=== PATIENT | male | born 1935 | race Caucasian/White ===

== ENCOUNTER 2016-05-25 15:26 | Inpatient (IN) | payer OTHER, MEDICARE ==
[~2016-05-25] VITALS: Ht 175.3 cm; Wt 52.1 kg
[2016-05-25 16:21] VITALS: BP 140/66; PULSE 60; RESP 18; TEMP 97.6
[2016-05-25 16:26] VITALS: BP 140/66; PULSE 61; RESP 18; O2SAT 93
[2016-05-25] MEDS ORDERED: SODIUM CHLOR 0.9% 1000 ML INJ 1,000 ML IV SCH (16:35)
[2016-05-25 16:53] VITALS: O2SAT 95
--- NOTE | 2016-05-25 16:56 | PD ---
HPI Chief Complaint: General Weakness Time Seen by Provider: 16:51 Travel History International Travel<30 days: No Contact w/Intl Traveler<30days: No Traveled to known affect area: No History of Present Illness HPI 80-year-old male that presents to the ED for evaluation of generalized weakness. Patient states that for the past 3 days his been having nausea, vomiting, loss of appetite as well as diarrhea. Per patient he doesn't really have abdominal pain but cramping when he has the diarrhea. Per patient his been losing some weight about 10 pounds for the past 3 days. Per patient he takes no medications. Per patient he has no medical issues. Per patient he also doesn't see doctors frequently. Per patient he does drink and smoke. He denies having a colonoscopy recently. He states that his stools are tarry and other liquidy. She states that for the most part he has no discomfort at this time. Per patient and his main symptom is the weakness and feeling fatigued. He denies any blood in the stool or any blood on the vomiting. He states that the only thing has been taking is Tylenol for pain. Per patient he also developed some right shoulder pain with no injury for the past 3 days. Per patient the pain in this area is 4 out of 10. Denies any chest pain or shortness of breath. No cough or runny nose. States having some chills and sweats but no fever. [facility] Social History Alcohol Use: No Tobacco Use: Yes Substance Use: No Allergies-Medications (Allergen,Severity, Reaction): Coded Allergies: No Known Allergies (Unverified , 05/25/16) Reported Meds & Prescriptions Reported Meds & Active Scripts Active No Active Prescriptions or Reported Medications Review of Systems General / Constitutional: No: Fever, Chills, Weight Gain, Weight Loss, Other Eyes: No: Diploplia, Blurred Vision, Photophobia, Drainage, Redness, Foreign Body Sensation, Pain, Tearing, Blind Spots, Visual changes, Blindness, Other HENT: No: Headaches, Vertigo, Lightheadedness, Sore Throat, Rhinitis, Rhinorrhea, Congestion, Nosebleed, Neck Stiffness, Neck Pain, Masses, Gingival Bleeding, Dental Difficulties, Ear Discharge, Earache, Other Cardiovascular: No: Chest Pain or Discomfort, Palpitations, Irregular Rhythm, Tachycardia, Diaphoresis, Syncope, Dyspnea on exertion, Varicosities, Edema, Cyanosis, Varicosities, Phlebitis, Claudication, Other Respiratory: No: Cough, Shortness of Breath, Wheezing, Sneezing, Orthopnea, Hemoptysis, Stridor, Night Sweats, Pleuritic Pain, Other Gastrointestinal: Positive: Nausea, Vomiting, Diarrhea, Abdominal Pain, No: Hematemesis, Hematochezia, Constipation, Changes in Bowel Habits, Indigestion, Dysphagia, Loss of Appetite, Other Genitourinary: No: Urgency, Frequency, Dysuria, Nocturia, Hematuria, Decreased Urinary Output, Oliguria, Hesitancy, Dribbling, Incontinence, Pelvic Pain, Flank Pain, Dyspareunia, Discharge, Dysmenorrhea, Menorrhagia, Metorrhagia, Vaginal Bleeding, Other Musculoskeletal: Positive: Weakness, No: Myalgias, Arthralgias, Limited ROM, Cramping, Edema, Pain, Atrophy, Other Skin: No Rash, No Itching, No Dryness, No Lumps, No Hives, No Change in Pigmentation, No Change in nails, No Alopecia, No Lesions, No Breast Lumps, No Breast Tenderness, No Breast Swelling, No Other Neurologic: No: Weakness, Dizziness, Syncope, Focal Abnormalities, Coordination Problem, Tremor, Ataxia, Headache, Change in Mentation, Slurred Speech, Paresthesia, Incontinence, Seizures, Sensory Disturbance, Other Psychiatric: Positive: Substance Abuse (alcohol), No: Anxiety, Depression, Suicidal Ideations, Disorder of Thought, Mood Disorder, Homicidal Ideation, Other Endocrine: No: Heat Intolerance, Cold Intolerance, Polyuria, Polydipsia, Other Hematologic/Lymphatic: No: Easy Bruising, Lymph Node Enlargement, Other Physical Exam Narrative GENERAL: SKIN: Warm and dry. HEAD: Atraumatic. Normocephalic. EYES: Pupils equal and round 4 mm reactive to light and accommodation. No scleral icterus. No injection or drainage. ENT: No nasal bleeding or discharge. Mucous membranes pink and moist. Tongue is midline. No uvula deviation. NECK: Trachea midline. No JVD. CARDIOVASCULAR: Regular rate and rhythm. No murmurs, S3, S4. RESPIRATORY: No accessory muscle use. Clear to auscultation. Breath sounds equal bilaterally. GASTROINTESTINAL: Abdomen soft, non-tender, nondistended. Hepatic and splenic margins not palpable. MUSCULOSKELETAL: Extremities without clubbing, cyanosis, or edema. No obvious deformities. Full range of motion of the upper and lower extremities bilaterally. 2+ pulses bilaterally. NEUROLOGICAL: Awake and alert. No obvious cranial nerve deficits. Motor grossly within normal limits. Five out of 5 muscle strength in the arms and legs. Normal speech. PSYCHIATRIC: Appropriate mood and affect; insight and judgment normal. Data Data Last Documented VS Vital Signs Date Time Temp Pulse Resp B/P Pulse Ox O2 Delivery O2 Flow Rate FiO2 05/25/16 18:50 59 18 125/80 96 Room Air 05/25/16 16:21 97.6 Orders Complete Blood Count With Diff (05/25/16 16:35) Comprehensive Metabolic Panel (05/25/16 16:35) Lipase (05/25/16 16:35) Lactic Acid (05/25/16 16:35) Prothrombin Time / Inr (Pt) (05/25/16 16:35) Act Partial Throm Time (Ptt) (05/25/16 16:35) Urinalysis - C+S If Indicated (05/25/16 16:35) Ct Abd/Pel W Iv Contrast(Rout) (05/25/16 16:35) Iv Access Insert/Monitor (05/25/16 16:35) Ecg Monitoring (05/25/16 16:35) Oximetry (05/25/16 16:35) Sodium Chlor 0.9% 1000 Ml Inj (Ns 1000 M (05/25/16 16:35) Electrocardiogram (05/25/16 16:35) C Diff Toxin Pcr (05/25/16 16:36) Chest, Single Ap (05/25/16 ) Iohexol 350 Inj (Omnipaque 350 Inj) (05/25/16 19:00) Labs Laboratory Tests Test 05/25/16 05/25/16 05/25/16 16:30 16:50 18:49 White Blood Count 13.4 TH/MM3 Red Blood Count 3.60 MIL/MM3 Hemoglobin 11.1 GM/DL Hematocrit 33.5 % Mean Corpuscular Volume 93.1 FL Mean Corpuscular Hemoglobin 30.8 PG Mean Corpuscular Hemoglobin 33.1 % Concent Red Cell Distribution Width 15.5 % Platelet Count 272 TH/MM3 Mean Platelet Volume 7.9 FL Neutrophils (%) (Auto) 79.4 % Lymphocytes (%) (Auto) 8.9 % Monocytes (%) (Auto) 10.5 % Eosinophils (%) (Auto) 1.0 % Basophils (%) (Auto) 0.2 % Neutrophils # (Auto) 10.6 TH/MM3 Lymphocytes # (Auto) 1.2 TH/MM3 Monocytes # (Auto) 1.4 TH/MM3 Eosinophils # (Auto) 0.1 TH/MM3 Basophils # (Auto) 0.0 TH/MM3 CBC Comment DIFF FINAL Differential Comment Prothrombin Time 11.1 SEC Prothromb Time International 1.0 RATIO Ratio Activated Partial 33.4 SEC Thromboplast Time Sodium Level 136 MEQ/L Potassium Level 3.9 MEQ/L Chloride Level 102 MEQ/L Carbon Dioxide Level 27.2 MEQ/L Anion Gap 7 MEQ/L Blood Urea Nitrogen 9 MG/DL Creatinine 0.64 MG/DL Estimat Glomerular Filtration 121 ML/MIN Rate Random Glucose 92 MG/DL Calcium Level 9.5 MG/DL Total Bilirubin 0.5 MG/DL Aspartate Amino Transf 35 U/L (AST/SGOT) Alanine Aminotransferase 28 U/L (ALT/SGPT) Alkaline Phosphatase 190 U/L Total Protein 6.0 GM/DL Albumin 2.3 GM/DL Lipase 58 U/L Lactic Acid Level 2.3 mmol/L Urine Color YELLOW Urine Turbidity HAZY Urine pH 5.5 Urine Specific [place] 1.024 Urine Protein TRACE mg/dL Urine Glucose (UA) NEG mg/dL Urine Ketones NEG mg/dL Urine Occult Blood MOD Urine Nitrite NEG Urine Bilirubin NEG Urine Urobilinogen LESS THAN 2.0 MG/DL Urine Leukocyte Esterase NEG Urine RBC 14 /hpf Urine WBC 4 /hpf Urine Hyaline Casts 5 /lpf Urine Mucus FEW /lpf Microscopic Urinalysis Comment CULT NOT INDICATED MDM Medical Decision Making Medical Screen Exam Complete: Yes Emergency Medical Condition: Yes Medical Record Reviewed: Yes Interpretation(s) Last Impressions Chest X-Ray 05/25/16 0000 Signed Impressions: Service Date/Time: Wednesday, May 25, 2016 17:11 - CONCLUSION: Mild diffuse mid to lower left lung consolidation versus atelectasis and small left pleural effusion. Chadwick Rodas MD CBC & BMP Diagram 05/25/16 16:30 LFTs WNL Lipase WNL Lactic acid is slightly elevated. CT of the abdomen and pelvis show metastatic disease with multiple masses especially in the liver and adrenal glands Differential Diagnosis Diverticulitis versus mass versus gastroenteritis versus ileus versus weakness versus diarrhea versus C. difficile versus electrolyte abnormality versus generalized weakness versus pneumonia versus sepsis Narrative Course 80-year-old male that presents to the ED for evaluation of diarrhea and weakness. Patient was properly examined and was found to have signs and symptoms consistent appears to be [place] weakness with diarrhea. At this time I recommend labs and imaging. Patient is agreeable with this. Patient was given IV fluids. Hemoccult was performed by me and did not show any sign of rectal bleeding but did show what appears to be positive Hemoccult. Labs and imaging showed what appears to be metastatic disease. She does have a leukocytosis and a positive Hemoccult. At this time recommendation is for admission. I informed the patient and family of the findings and answered all the questions as best as I could. They agree with admission for further evaluation of disease and hopefully a good treatment plan to improve patient's symptoms. Case was discussed with Dr. Ruiz who agrees to admission and recommends full admission. Patient was admitted to [facility]. [facility] Point of Care Internal Pos. & Neg. Controls: Passed Fecal Specimen Occult Blood: Positive Diagnosis Primary Impression: Intractable nausea and vomiting Qualified Code: R11.2 - Intractable vomiting with nausea, unspecified vomiting type Additional Impressions: Weakness generalized Leukocytosis Qualified Code: D72.829 - Leukocytosis, unspecified type Metastatic disease Admitting Information Admitting Physician Requests: Admit Scripts No Active Prescriptions or Reported Meds Minh Friedman May 25, 2016 16:56
[2016-05-25 17:02] LABS: AUTOMATED NEUTROPHIL # 10.6 TH/MM3 (1.8-7.7); BASOPHIL % 0.2 % (0.0-2.0); EOSINOPHIL # 0.1 TH/MM3 (0-0.4); HEMATOCRIT 33.5 % (39.0-51.0); HEMO FLAGS DIFF FINAL; LYMPH % 8.9 % (9.0-44.0); LYMPHOCYTE # 1.2 TH/MM3 (1.0-4.8); MEAN CELL VOLUME 93.1 FL (80.0-100.0); MEAN CORPUSCULAR HEMOGLOBIN 30.8 PG (27.0-34.0); MEAN CORPUSCULAR HGB CONC 33.1 % (32.0-36.0); MONO % 10.5 % (0.0-8.0); NEUT % 79.4 % (16.0-70.0); PLATELET COUNT 272 TH/MM3 (150-450); RED CELL DISTRIBUTION WIDTH 15.5 % (11.6-17.2); WHITE BLOOD COUNT 13.4 TH/MM3 (4.0-11.0)
[2016-05-25 17:23] LABS: APTT (PATIENT) 33.4 SEC (24.3-30.1); PROTHROMBIN TIME - PATIENT 11.1 SEC (9.8-11.6)
[2016-05-25 17:29] LABS: ALT (GPT) 28 U/L (12-78); ANION GAP 7 MEQ/L (5-15); AST (GOT) 35 U/L (15-37); BICARBONATE 27.2 MEQ/L (21.0-32.0); BLOOD UREA NITROGEN 9 MG/DL (7-18); CHLORIDE 102 MEQ/L (98-107); GLOMERULAR FILTRATION RATE 121 ML/MIN (>89); POTASSIUM 3.9 MEQ/L (3.5-5.1); SODIUM (NA) 136 MEQ/L (136-145)
[2016-05-25 17:31] LABS: ALKALINE PHOSPHATASE 190 U/L (45-117); TOTAL BILIRUBIN ADULT 0.5 MG/DL (0.2-1.0)
--- NOTE | 2016-05-25 17:48 | RADRPT ---
EXAM DATE/TIME: 05/25/2016 17:11 [facility] COMPARISON: No previous studies available for comparison. INDICATIONS : Fever and cough. MEDICAL HISTORY : None. SURGICAL HISTORY : None. ENCOUNTER: Initial ACUITY: 1 day PAIN SCORE: 0/10 LOCATION: Bilateral chest FINDINGS: Single AP view of the chest. Diffuse mild hazy opacity in the mid to lower left lung. Small left pleu ral effusion. Right lung clear. Cardiomediastinal silhouette within normal limits. No evidence of pne umothorax. CONCLUSION: Mild diffuse mid to lower left lung consolidation versus atelectasis and small left pleural effusion. Chadwick Rodas MD on May 25, 2016 at 17:45 Board Certified Radiologist. This report was verified electronically.
[2016-05-25 18:50] VITALS: BP 125/80; PULSE 59; RESP 18; O2SAT 96
[2016-05-25] MEDS ORDERED: IOHEXOL 350 MG/ML 10 ML VIAL (for RAD DIAG) IV ONE (19:00)
[2016-05-25 19:05] VITALS: BP 120/62; PULSE 63; RESP 19; O2SAT 93
[2016-05-25 19:11] LABS: BLOOD, URINE MOD (NEG); COMMENT (UR) CULT NOT INDICATED; CULTURE IF INDICATED CULT NOT INDICATED; GLUCOSE,URINE NEG (NEG); HYALINE CAST, URINE 5 /lpf (RARE); KETONE, URINE NEG (NEG); MUCUS URINE FEW /lpf (OCC); NITRITE,URINE NEG (NEG); PH, URINE 5.5 (5.0-8.5); URINE COLOR YELLOW (YELLW/STRAW)
--- NOTE | 2016-05-25 19:35 | RADRPT ---
EXAM DATE/TIME: 05/25/2016 18:29 [facility] COMPARISON: No previous studies available for comparison. INDICATIONS : Weight loss, diarrhea, and vomiting. IV CONTRAST: 70 cc Omnipaque 350 (iohexol) IV ORAL CONTRAST: No oral contrast ingested. RADIATION DOSE: 4.56 CTDIvol (mGy) MEDICAL HISTORY : None SURGICAL HISTORY : None. ENCOUNTER: Initial ACUITY: 1 month PAIN SCALE: 0/10 LOCATION: Bilateral upper quadrant and lower quadrant. TECHNIQUE: Volumetric scanning of the abdomen and pelvis was performed. Using automated exposure control and ad justment of the mA and/or kV according to patient size, radiation dose was kept as low as reasonably achievable to obtain optimal diagnostic quality images. FINDINGS: There is a large possibly necrotic mass involving the left lower lobe which measures 6.6 x 4.8 cm. T his raises the possibility of bronchogenic carcinoma. A small left pleural effusion is noted and a t iny right pleural effusion is noted. There are at least three low density masses within right lobe o f the liver which raise the possibility of metastatic disease. The largest of these measures 4.5 cm in size. The liver is enlarged. The gallbladder is unremarkable. There is a mass within the left u pper quadrant which raises the possibility of left adrenal mass measuring 4.6 x 4.3 cm also raising t he possibility of metastatic disease to the left adrenal gland. Extensive bulky retroperitoneal lymp hadenopathy is noted within the left paraaortic, aortocaval and retrocaval regions. Retrocrural lymp hadenopathy is also noted. The spleen is unremarkable. The pancreas is atrophic. Portal lymphadeno grey is also noted. Infrarenal abdominal aortic aneurysm is noted and measures 3.7 cm AP x 3.9 cm t ransverse dimension. The prostate gland is markedly enlarged. A left inguinal hernia contains a loo p of proximal sigmoid colon. There is no colonic obstruction. Degenerative changes are noted throug hout the lumbar and lower thoracic spine. The urinary bladder is distended and its wall is diffusely thickened. CONCLUSION: 1. Large probably necrotic mass within the left lower lobe measuring 6.6 cm x 4.8 cm. This is suspi cious for bronchogenic carcinoma until proven otherwise. 2. Left upper quadrant mass measuring 4.3 x 4.6 cm consistent with possible metastatic disease to th e left adrenal gland. 3. Extensive bulky retroperitoneal and retrocrural lymphadenopathy as well as portal lymphadenopathy . 4. At least three low density lesions within the right lobe of liver with the largest measuring 4.5 cm consistent with probable metastatic disease. 5. Mild hepatomegaly. 6. Left inguinal hernia containing a loop of proximal sigmoid colon but resulting in no colonic obst ruction. 7. Enlarge prostate. 8. Infrarenal abdominal aortic aneurysm measuring 3.7 cm AP x 3.9 cm transverse dimension. 9. Diffuse urinary bladder wall thickening. 10. Small left pleural effusion and tiny right pleural effusion. Bandar Rahman MD on May 25, 2016 at 19:09 Board Certified Radiologist. This report was verified electronically.
[2016-05-25] MEDS ORDERED: SODIUM CHLORIDE 0.9% FLUSH 10 ML FLUSH IV FLUSH PRN (20:00)
[2016-05-25] MEDS ORDERED: ONDANSETRON HCL 4 MG/2 ML VIAL IVP PRN (20:00)
[2016-05-25] MEDS ORDERED: NALOXONE HCL 0.4 MG/ML AMP IV PRN (20:00)
[2016-05-25] MEDS ORDERED: PROCHLORPERAZINE 25 MG SUPP PR PRN (20:00)
[2016-05-25] MEDS ORDERED: BISACODYL 10 MG SUPP PR PRN (20:00)
[2016-05-25] MEDS ORDERED: SENNOSIDES 8.6 MG TAB PO PRN (20:00)
[2016-05-25] MEDS ORDERED: MAGNESIUM HYDROXIDE SUSP 30 ML CUP PO PRN (20:00)
--- NOTE | 2016-05-25 20:21 | HHI.HP ---
HPI Service [facility] Primary Care Physician [facility] Admission Diagnosis intractable nausea, weakness, metastatic cancer Diagnoses: Chief Complaint: Nausea, weakness, weight loss Travel History International Travel<30 Days: No Contact w/Intl Traveler <30 Da: No Traveled to Known Affected Are: No History of Present Illness 80 y/o male with no medical history and currently not on any medications. He does take OTC Tylenol for aches and pains. He presents to the ED with complaints of nausea, diarrhea and decreased appetite for the past two days. According to patients daughter who is at the bedside she states patient has been deteriorating for the last 2 months. He complains of of black liquid diarrhea many times for the last 2 days with associated nausea, but denies any vomiting. For the last week he has had a cold, with no sputum production, and complains of lightheadedness, and dizziness when he first stands up. He states he gets shaky when he gets up but goes away with walking. He states he also is having an intermittent dull, nagging pain in his right upper extremity, and lower back. Decreased in appetite has been for the last 2 months with a 10 lb weight loss. He states he does have burning with urination, and unable to empty his bladder completely, but this has been going on for 3 years and he has never seen a DR for it. He denies any fever, chills, SOB, or chest pain. Review of Systems Constitutional: COMPLAINS OF: Weight loss, Dizziness, DENIES: Fever, Chills Ears, nose, mouth, throat: COMPLAINS OF: Throat pain Respiratory: COMPLAINS OF: Cough, DENIES: Sputum production, Shortness of breath Cardiovascular: COMPLAINS OF: Lower Extremity Edema, DENIES: Chest pain, Syncope Gastrointestinal: COMPLAINS OF: Diarrhea, Nausea, DENIES: Constipation, Vomiting Genitourinary: COMPLAINS OF: Dysuria, DENIES: Urgency Musculoskeletal: COMPLAINS OF: Joint pain, Back pain Integumentary: DENIES: Rash Hematologic/lymphatic: DENIES: Lymphadenopathy Immunologic/allergic: DENIES: Urticaria Neurologic: COMPLAINS OF: Localized weakness, DENIES: Headache Psychiatric: DENIES: Confusion Past Family Social History Past Medical History Left inguinal hernia 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, none for last 6 years Past Surgical History left ankle repair with plates Cataracts Reported Medications Reported Meds & Active Scripts Active No Active Prescriptions or Reported Medications Allergies: Coded Allergies: No Known Allergies (Unverified , 05/25/16) Active Ordered Medications Current Medications Medications (Trade) Dose Ordered Sig/Issa Route Start Time Stop Time Status Last Admin (NS 1000 ml Inj) 1,000 ml @ 100 mls/hr Q10H IV 05/25/16 20:00 (NS Flush) 2 ml UNSCH PRN IV FLUSH 05/25/16 20:00 (NS Flush) 2 ml BID IV FLUSH 05/25/16 21:00 (Zofran Inj) 4 mg Q6H PRN IVP 05/25/16 20:00 (Compazine Supp) 25 mg Q12H PRN OH 05/25/16 20:00 (Dulcolax Supp) 10 mg DAILY PRN OH 05/25/16 20:00 (Milk Of Magnesia Liq) 30 ml Q12H PRN PO 05/25/16 20:00 (Senokot) 17.2 mg Q12H PRN PO 05/25/16 20:00 (Narcan Inj) 0.4 mg UNSCH PRN IV 05/25/16 20:00 Family History Patient denies any family history of cancer or heart disease. Social History Tobacco use: 2-3 PPD for 72 years Alcohol use: 1-4 beers a day, last 2 months he had hardly none. Illicit drug use: Denies Physical Exam Vital Signs Vital Signs Date Time Temp Pulse Resp B/P Pulse Ox O2 Delivery O2 Flow Rate FiO2 05/25/16 18:50 59 18 125/80 96 Room Air 05/25/16 16:53 95 Room Air 05/25/16 16:26 61 18 140/66 93 Room Air 05/25/16 16:21 97.6 60 18 140/66 Physical Exam GENERAL: This is a thin, frail patient, in no apparent distress. SKIN: No rashes, ecchymoses or lesions. Cool, dry and scaly. HEAD: Atraumatic. Normocephalic. EYES: Pupils equal round and reactive. Extraocular motions intact. No drainage. ENT: Nose without bleeding, purulent drainage or septal hematoma. Airway patent. NECK: Trachea midline. No JVD or lymphadenopathy. Supple, nontender, no meningeal signs. CARDIOVASCULAR: Regular rate and rhythm without murmurs, gallops, or rubs. RESPIRATORY: Diminished Breath sounds. No wheezes, rales, or rhonchi. GASTROINTESTINAL: Abdomen soft, non-tender, nondistended. No hepato-splenomegaly , or palpable masses. No guarding. left inguinal hernia present. MUSCULOSKELETAL: Extremities without clubbing, cyanosis, or edema. No joint tenderness, effusion, or edema noted. No calf tenderness. NEUROLOGICAL: Awake and alert. Cranial nerves II through XII intact. Motor and sensory grossly within normal limits. Five out of 5 muscle strength in all muscle groups. Normal speech. Laboratory Laboratory Tests Test 05/25/16 05/25/16 05/25/16 16:30 16:50 18:49 White Blood Count 13.4 Red Blood Count 3.60 Hemoglobin 11.1 Hematocrit 33.5 Mean Corpuscular Volume 93.1 Mean Corpuscular Hemoglobin 30.8 Mean Corpuscular Hemoglobin 33.1 Concent Red Cell Distribution Width 15.5 Platelet Count 272 Mean Platelet Volume 7.9 Neutrophils (%) (Auto) 79.4 Lymphocytes (%) (Auto) 8.9 Monocytes (%) (Auto) 10.5 Eosinophils (%) (Auto) 1.0 Basophils (%) (Auto) 0.2 Neutrophils # (Auto) 10.6 Lymphocytes # (Auto) 1.2 Monocytes # (Auto) 1.4 Eosinophils # (Auto) 0.1 Basophils # (Auto) 0.0 CBC Comment DIFF FINAL Differential Comment Prothrombin Time 11.1 Prothromb Time International 1.0 Ratio Activated Partial 33.4 Thromboplast Time Sodium Level 136 Potassium Level 3.9 Chloride Level 102 Carbon Dioxide Level 27.2 Anion Gap 7 Blood Urea Nitrogen 9 Creatinine 0.64 Estimat Glomerular Filtration 121 Rate Random Glucose 92 Calcium Level 9.5 Total Bilirubin 0.5 Aspartate Amino Transf 35 (AST/SGOT) Alanine Aminotransferase 28 (ALT/SGPT) Alkaline Phosphatase 190 Total Protein 6.0 Albumin 2.3 Lipase 58 Lactic Acid Level 2.3 Urine Color YELLOW Urine Turbidity HAZY Urine pH 5.5 Urine Specific [place] 1.024 Urine Protein TRACE Urine Glucose (UA) NEG Urine Ketones NEG Urine Occult Blood MOD Urine Nitrite NEG Urine Bilirubin NEG Urine Urobilinogen LESS THAN 2.0 Urine Leukocyte Esterase NEG Urine RBC 14 Urine WBC 4 Urine Hyaline Casts 5 Urine Mucus FEW Microscopic Urinalysis Comment CULT NOT INDICATED Result Diagram: 05/25/16 1630 05/25/16 1630 Imaging Last Impressions Abdomen/Pelvis CT 05/25/16 1635 Signed Impressions: Service Date/Time: Wednesday, May 25, 2016 18:29 - CONCLUSION: 1. Large probably necrotic mass within the left lower lobe measuring 6.6 cm x 4.8 cm. This is suspicious for bronchogenic carcinoma until proven otherwise. 2. Left upper quadrant mass measuring 4.3 x 4.6 cm consistent with possible metastatic disease to the left adrenal gland. 3. Extensive bulky retroperitoneal and retrocrural lymphadenopathy as well as portal lymphadenopathy. 4. At least three low density lesions within the right lobe of liver with the largest measuring 4.5 cm consistent with probable metastatic disease. 5. Mild hepatomegaly. 6. Left inguinal hernia containing a loop of proximal sigmoid colon but resulting in no colonic obstruction. 7. Enlarge prostate. 8. Infrarenal abdominal aortic aneurysm measuring 3.7 cm AP x 3.9 cm transverse dimension. 9. Diffuse urinary bladder wall thickening. 10. Small left pleural effusion and tiny right pleural effusion. Bandar Rahman MD Chest X-Ray 05/25/16 0000 Signed Impressions: Service Date/Time: Wednesday, May 25, 2016 17:11 - CONCLUSION: Mild diffuse mid to lower left lung consolidation versus atelectasis and small left pleural effusion. Chadwick Rodas MD Assessment and Plan Problem List: (1) Leukocytosis ICD Code: D72.829 Status: Acute (2) Intractable nausea and vomiting ICD Code: R11.2 Status: Acute (3) Metastatic disease ICD Code: C79.9 Status: Acute (4) Diarrhea ICD Code: R19.7 Status: Acute (5) Decrease in appetite ICD Code: R63.0 Status: Acute Assessment and Plan 80 y/o male with no medical history and currently not on any medications. He does take OTC Tylenol for aches and pains. He presents to the ED with complaints of nausea, diarrhea and decreased appetite for the past two days. Leukocytosis Labs: wbc 13.4, neutrophils 79% -CBC in AM, and trend -Supportive IVF -Start Levaquin IV -Flu pending Intractable nausea and vomiting -Antiemetics as needed -clear liquid diet and regular as tolerated Metastatic disease, possible abdomen and lung Images reviewed: Abd CT shows a Large probably necrotic mass within the left lower lobe measuring 6.6 cm x 4.8 cm. Left upper quadrant mass measuring 4.3 x 4.6 cm consistent with possible metastatic disease to the left adrenal gland. Extensive bulky retroperitoneal and retrocrural lymphadenopathy as well as portal lymphadenopathy. At least three low density lesions within the right lobe of liver with the largest measuring 4.5 cm consistent with probable metastatic disease. Infrarenal abdominal aortic aneurysm measuring 3.7 cm AP x 3.9 cm transverse dimension. Small left pleural effusion and tiny right pleural effusion. -Consult general surgery for biopsy, abdominal/liver biopsy may be the best -Consult Medical oncology for recommendations Decrease in appetite, discussed with patient options to increase appetite such as Marinol, and patient agreed -Start Marinol BID with lunch and dinner -TSH ordered Diarrhea, black stool Labs: HGB 11.1 -C diff ordered -Occult blood DVT: SCDs Written by ADALGISA Polanco acting as scribe for DR. Ruiz on 05/25/16 at 2009. All or portions of this note were transcribed by scribe [ADALGISA Polanco]. I , Dr. Alexsander Ruiz personally performed the history, physical exam, and medical decision making; and confirmed the accuracy of the information in the transcribed note. Authenticated by Dr. Alexsander Ruiz on 05/26/16 at 05:23. Discussed Condition With Patient, daughter, and daughters fiance. Physician Certification 2 Midnight Certification Type: Admission for Inpatient Services Order for Inpatient Services The services are ordered in accordance with Medicare regulations or non- Medicare payer requirements, as applicable. In the case of services not specified as inpatient-only, they are appropriately provided as inpatient services in accordance with the 2-midnight benchmark. Estimated LOS (days): 2 days is the estimated time the patient will need to remain in the hospital, assuming treatment plan goals are met and no additional complications. Post-Hospital Plan: Not yet determined Problem Qualifiers (1) Leukocytosis: Qualified Code: D72.829 - Leukocytosis, unspecified type (2) Intractable nausea and vomiting: Qualified Code: R11.2 - Intractable vomiting with nausea, unspecified vomiting type Fely Wayne May 25, 2016 20:21 Alexsander Ruiz MD May 26, 2016 05:24
[2016-05-25] MEDS: SODIUM CHLORIDE 0.9% FLUSH 10 ML FLUSH IV FLUSH SCH (21:00)
[2016-05-25] MEDS: SODIUM CHLOR 0.9% 1000 ML INJ 1,000 ML IV SCH (21:25)
[2016-05-25] MEDS: LEVOFLOXACIN 750 MG PREMIX INJ 150 ML IV SCH (21:47)
--- NOTE | 2016-05-25 22:26 | EKG ---
Date Performed: 05/25/2016 Time Performed: 17:02:27 PTAGE: 80 years EKG: SINUS BRADYCARDIA MARKED LEFT AXIS DEVIATION LOW QRS VOLTAGE IN EXTREMITY LEADS ABNORMAL EC G NO PREVIOUS TRACING DOCTOR: Chacha Hansen Interpretating Date/Time 05/25/2016 22:23:50
[2016-05-25 22:45] VITALS: BP 116/64; PULSE 67; RESP 18; TEMP 97.4; O2SAT 96
[2016-05-26] VITALS: BP 115/64
[2016-05-26] MEDS ORDERED: ACETAMINOPHEN 325 MG TAB PO ONE (00:30)
[2016-05-26 04:00] VITALS: BP 107/57; PULSE 63; RESP 18; TEMP 97; O2SAT 96
[2016-05-26] MEDS: SODIUM CHLOR 0.9% 1000 ML INJ 1,000 ML IV SCH ×2 (06:00→16:00)
[2016-05-26 06:22] LABS: ALKALINE PHOSPHATASE 160 U/L (45-117); ALT (GPT) 21 U/L (12-78); ANION GAP 9 MEQ/L (5-15); AST (GOT) 27 U/L (15-37); BICARBONATE 24.2 MEQ/L (21.0-32.0); BLOOD UREA NITROGEN 8 MG/DL (7-18); CHLORIDE 104 MEQ/L (98-107); GLOMERULAR FILTRATION RATE 128 ML/MIN (>89); POTASSIUM 3.6 MEQ/L (3.5-5.1); SODIUM (NA) 137 MEQ/L (136-145); TOTAL BILIRUBIN ADULT 0.4 MG/DL (0.2-1.0)
[2016-05-26 08:00] VITALS: BP 109/63; PULSE 61; RESP 20; TEMP 96.6; O2SAT 90
[2016-05-26] MEDS: SODIUM CHLORIDE 0.9% FLUSH 10 ML FLUSH IV FLUSH SCH (09:00)
[2016-05-26] MEDS ORDERED: PNEUMOCOCCAL POLYVALENT INJ 25 MCG/0.5 ML SYR IM ONE (09:00)
[2016-05-26] MEDS ORDERED: INFLUENZA VIRUS VACCINE (QUADRIVALENT) 0.5 ML SYR IM ONE (09:00)
--- NOTE | 2016-05-26 10:18 | HHI.PR ---
Subjective Remarks Complaints of back pain. Patient in bed. Says he would prefer to go home. Daughter at bedside also says they would prefer to go home and follow up at [facility]. Patient denies nausea/vomiting, did eat half of a burger. No much appetite. Says he did have diarrhea 3-4 times. No blood in it. No fever or chills. Says he does like ensure. Objective Vitals Vital Signs Date Time Temp Pulse Resp B/P Pulse Ox O2 Delivery O2 Flow Rate FiO2 05/26/16 04:00 97.0 63 18 107/57 96 05/25/16 22:45 97.4 67 18 116/64 96 05/25/16 22:45 97.4 67 18 116/64 96 05/25/16 20:59 69 19 93 Room Air 05/25/16 19:05 63 19 120/62 93 Room Air 05/25/16 18:50 59 18 125/80 96 Room Air 05/25/16 16:53 95 Room Air 05/25/16 16:26 61 18 140/66 93 Room Air 05/25/16 16:21 97.6 60 18 140/66 I/O 05/25/16 05/25/16 05/25/16 05/26/16 05/26/16 05/26/16 07:00 15:00 23:00 07:00 15:00 23:00 Intake Total 120 ml Balance 120 ml Intake Oral 120 ml # Voids 2 # Bowel Movements 1 Result Diagram: 05/25/16 1630 05/26/16 0512 Imaging Last Impressions Abdomen/Pelvis CT 05/25/16 1635 Signed Impressions: Service Date/Time: Wednesday, May 25, 2016 18:29 - CONCLUSION: 1. Large probably necrotic mass within the left lower lobe measuring 6.6 cm x 4.8 cm. This is suspicious for bronchogenic carcinoma until proven otherwise. 2. Left upper quadrant mass measuring 4.3 x 4.6 cm consistent with possible metastatic disease to the left adrenal gland. 3. Extensive bulky retroperitoneal and retrocrural lymphadenopathy as well as portal lymphadenopathy. 4. At least three low density lesions within the right lobe of liver with the largest measuring 4.5 cm consistent with probable metastatic disease. 5. Mild hepatomegaly. 6. Left inguinal hernia containing a loop of proximal sigmoid colon but resulting in no colonic obstruction. 7. Enlarge prostate. 8. Infrarenal abdominal aortic aneurysm measuring 3.7 cm AP x 3.9 cm transverse dimension. 9. Diffuse urinary bladder wall thickening. 10. Small left pleural effusion and tiny right pleural effusion. Bandar Rahman MD Chest X-Ray 05/25/16 0000 Signed Impressions: Service Date/Time: Wednesday, May 25, 2016 17:11 - CONCLUSION: Mild diffuse mid to lower left lung consolidation versus atelectasis and small left pleural effusion. Chadwick Rodas MD Objective Remarks GENERAL: This is a pleasant cachectic chronically ill 80 yo male patient, in no apparent distress. SKIN: No rashes, ecchymoses or lesions. Cool, dry and scaly. HEAD: Atraumatic. Normocephalic. EYES: Pupils equal round and reactive. Extraocular motions intact. No drainage. ENT: Nose without bleeding, purulent drainage or septal hematoma. Airway patent. NECK: Trachea midline. No JVD or lymphadenopathy. Supple, nontender, no meningeal signs. CARDIOVASCULAR: Regular rate and rhythm without murmurs, gallops, or rubs. RESPIRATORY: Diminished Breath sounds. No wheezes, rales, or rhonchi. GASTROINTESTINAL: Abdomen soft, non-tender, nondistended. No hepato-splenomegaly , or palpable masses. No guarding. left inguinal hernia present. MUSCULOSKELETAL: Extremities without clubbing, cyanosis, or edema. No joint tenderness, effusion, or edema noted. No calf tenderness. NEUROLOGICAL: Awake and alert. Cranial nerves II through XII intact. Motor and sensory grossly within normal limits. Five out of 5 muscle strength in all muscle groups. Normal speech. A/P Problem List: (1) Leukocytosis ICD Code: D72.829 Status: Acute (2) Intractable nausea and vomiting ICD Code: R11.2 Status: Acute (3) Metastatic disease ICD Code: C79.9 Status: Acute (4) Diarrhea ICD Code: R19.7 Status: Acute (5) Decrease in appetite ICD Code: R63.0 Status: Acute Assessment and Plan 80 y/o male with no medical history and currently not on any medications. He does take OTC Tylenol for aches and pains. He presents to the ED with complaints of nausea, diarrhea and decreased appetite for the past two days. Leukocytosis Labs: wbc 13.4, neutrophils 79% CBC in AM, and trend Supportive IVF Start Levaquin IV Flu pending Intractable nausea and vomiting Clear liquid diet and regular as tolerated Metastatic disease, possible abdomen and lung Images reviewed: Abd CT shows a Large probably necrotic mass within the left lower lobe measuring 6.6 cm x 4.8 cm. Left upper quadrant mass measuring 4.3 x 4.6 cm consistent with possible metastatic disease to the left adrenal gland. Extensive bulky retroperitoneal and retrocrural lymphadenopathy as well as portal lymphadenopathy. At least three low density lesions within the right lobe of liver with the largest measuring 4.5 cm consistent with probable metastatic disease. Infrarenal abdominal aortic aneurysm measuring 3.7 cm AP x 3.9 cm transverse dimension. Small left pleural effusion and tiny right pleural effusion. Consult Medical oncology for recommendations Anorexia/ moderate to severe protein calorie malnutrition BMI 17.9, low albumin , muscle waiting, bitemporal and weak hand bread wrapper Continue Marinol BID with lunch and dinner (increased). Add Ensure. TSH is normal Duct Layer consult Diarrhea, black stool Labs: HGB 11.1 C diff ordered Occult blood pending DVT: SCDs Discussed with the patient, nurse, family ( daughter at bedside) Problem Qualifiers (1) Leukocytosis: Qualified Code: D72.829 - Leukocytosis, unspecified type (2) Intractable nausea and vomiting: Qualified Code: R11.2 - Intractable vomiting with nausea, unspecified vomiting type Luann Aparicio MD May 26, 2016 10:18
[2016-05-26] MEDS: DRONABINOL 2.5 MG CAP PO SCH ×2 (10:54→16:57)
[2016-05-26 12:00] VITALS: BP 116/65; PULSE 65; RESP 20; TEMP 96.8; O2SAT 92
[2016-05-26] MEDS ORDERED: ACETAMINOPHEN/HYDROcodone 325 MG/7.5 MG TAB PO PRN (12:45)
[2016-05-26] MEDS ORDERED: ACETAMINOPHEN/HYDROcodone 325 MG/5 MG TAB PO PRN (12:45)
[2016-05-26] MEDS ORDERED: NALOXONE HCL 0.4 MG/ML AMP IV PRN (12:45)
[2016-05-26] MEDS ORDERED: HYDROmorphone HCL PF 1 MG/ML VIAL IV PRN (12:45)
[2016-05-26] MEDS ORDERED: DRON2.5 PO (13:45)
[2016-05-26] MEDS ORDERED: LACTCHW3 CHEW (13:45)
[2016-05-26] MEDS ORDERED: SENN8.6T15 PO (13:45)
[2016-05-26] MEDS ORDERED: NORC5TAB PO (13:45)
--- NOTE | 2016-05-26 13:47 | HHI.DCPOC ---
Discharge Care Plan Goals to Promote Your Health * To prevent worsening of your condition and complications * To maintain your health at the optimal level Directions to Meet Your Goals Take your medications as prescribed Follow your dietary instruction Follow activity as directed Keep your appointments as scheduled Take your immunizations and boosters as scheduled If your symptoms worsen call your PCP, if no PCP go to Urgent Care Center or Emergency Room Smoking is Dangerous to Your Health. Avoid second hand smoke Call the 24-hour hour crisis hotline for domestic abuse at Luann Aparicio MD May 26, 2016 13:46
[2016-05-26 16:17] VITALS: BP 100/55; PULSE 68; RESP 18; TEMP 97.5; O2SAT 95
[2016-05-26 20:00] VITALS: BP 100/49; PULSE 68; RESP 18; TEMP 97.4; O2SAT 95
[2016-05-26] MEDS: LEVOFLOXACIN 750 MG PREMIX INJ 150 ML IV SCH (21:00)
--- NOTE | 2016-05-26 23:09 | MB ---
cc: LEONARD MELLO DATE OF CONSULTATION: 05/26/2016 Date of : 1935 REASON FOR CONSULTATION Patient with multiple metastatic lesions in the lungs and abdomen. HISTORY OF PRESENT ILLNESS This is a 80-year-old elderly male who is quite frail and debilitated, and is a poor historian, who was brought to the emergency department with progressive decline over the last two months. He has decreased appetite, he has been losing weight, he has been having night sweats. He also felt dizzy and lightheaded. He has lost up to 15 pounds of weight. He appears quite cachectic. In the emergency department he underwent CT of the abdomen and pelvis which revealed a large necrotic mass involving the left lower lobes measuring 6.6 x 4.8 cm. This was concerning for bronchogenic carcinoma. There is also left pleural effusion. There are also at least three low density lesions in the right lobe of the liver. The largest lesion is 4.5 cm. The liver is enlarged. There is a mass within the left upper quadrant around the left adrenal area, measuring 4.6 x 4.3 cm. There is extensive bulky retroperitoneal adenopathy involving the left aortic, aortocaval and retrocaval region. There is rectocrural lymphadenopathy. Portal lymphadenopathy is also noted. He has an aortic aneurysm which is about 3.7 cm. The patient also has an enlarged prostate. The patient has not had a CT of the chest. The chest x-ray shows left lung consolidation. I have been consulted to make further recommendations in this patient who appears to have metastatic cancer. The patient appears to be eager to leave the hospital. His family members were present during this conversation. He tells me that he would like to pursue aggressive approach to diagnosis and treatment. REVIEW OF SYSTEMS A comprehensive 14-point review of systems was completed which was negative except as described in the HPI. PAST MEDICAL HISTORY: Past medical history was reviewed. The patient does not endorse any medical history. [facility] He states he has a history of inguinal hernia. MEDICATIONS: Reviewed in the EMR. He tells me he is not on any medications outpatient. He has a history of seizures but he has not had any since the last 50 years. PAST SURGICAL HISTORY Left ankle repair. Cataract surgery. ALLERGIES: NO KNOWN DRUG ALLERGIES. FAMILY HISTORY: Reviewed, noncontributory. SOCIAL HISTORY: He has more than 100 pack-year smoking history. He drinks approximately 1 to 4 beers a day. He says he has not had any alcohol for the last two months. No illicit drug use. PHYSICAL EXAMINATION: Vital signs: Blood pressure is 100/55, pulse is in the 60s, temperature is 97.5, O2 sats are 95%. General: Ill-appearing, cachectic, frail elderly male in no apparent distress. HEENT: Pupils are equal, round, reactive to light. EOMI. No oral thrush. No oral lesions. Neck is supple. No JVD, no bruits. No lymphadenopathy. Chest: Bilateral scattered rhonchi. Occasional wheezing in the upper [place], upon expiration, decreased breath sounds in the left lower lobe. Cardiac: S1-S2, regular rate and rhythm. Abdomen: Kyphotic, soft, nontender. No organomegaly. Extremities: Very thin, peripheral wasting noted. No edema, erythema, or cyanosis. : Diaper in place. He has urinary incontinence. Neuro: No focal deficits. Psychiatric: Mood and affect is appropriate. Seen without any petechiae, lesions or bruises. LABORATORY DATA: WBC 13.4, hemoglobin 11.1, platelet count 272. Serum chemistry showed sodium 137, potassium 3.6, chloride 104, BUN 8, creatinine is 0.61, GFR is 128. Calcium is 9. Total bilirubin 0.4, AST 27, ALT 21. Alk phos is 160, total protein 5.2, albumin is 1.9. Coags show INR 1.1, PT 11.1, PTT 33.4. IMAGING STUDIES Reviewed in the EMR, discussed in the HPI. ASSESSMENT/PLAN This is a 80-year-old male who is quite frail, cachectic and weak. He presents to the [facility] with loss of appetite, 15 pound weight loss and overall feeling unwell. 1. Diffuse metastatic disease involving the abdomen as well as left lower lobe of the lung. He had an extensive history of tobacco abuse. This is likely a lung primary. However, it could be another type of malignancy as well. In order to make a diagnosis, we need to get a tissue biopsy. I discussed this in detail with the patient and family. The patient stated that he would like to obtain a diagnosis and he wants to pursue aggressive therapy. I explained to the family and the patient that he appears very weak and thin, and he has borderline performance status which could be an ____ toward treatment. They understand this. They would like to pursue a biopsy and discuss their treatment options afterwards. We will request INR to complete a CT guided biopsy of the left lower lobe lesion. I will also obtain CT of the chest with contrast to complete staging. I will check LDH and CEA levels. Further recommendations will be made after biopsy results are available. 2. History of tobacco abuse. He was counseled to quit smoking. 3. History of alcohol abuse. 4. Severe malnutrition with an albumin of 1.9. Dietary consult. Thank you for allowing me to participate in the care of this patient. I will continue to follow this patient along. MD KAMALJIT Murillo/TARYN /9:53 PM /10:23 PM
[2016-05-27] VITALS (9 sets, daily range): BP systolic 107–134; BP diastolic 55–68; PULSE 51–75; RESP 17–20; TEMP 95.3–98.3; O2SAT 92–97
[2016-05-27 07:04] LABS: AUTOMATED NEUTROPHIL # 11.3 TH/MM3 (1.8-7.7); BASOPHIL % 0.2 % (0.0-2.0); EOSINOPHIL % 0.1 % (0.0-4.0); HEMO FLAGS DIFF FINAL; LYMPH % 4.7 % (9.0-44.0); LYMPHOCYTE # 0.6 TH/MM3 (1.0-4.8); MEAN CELL VOLUME 92.7 FL (80.0-100.0); MEAN CORPUSCULAR HEMOGLOBIN 31.1 PG (27.0-34.0); MEAN CORPUSCULAR HGB CONC 33.6 % (32.0-36.0); MONO % 12.8 % (0.0-8.0); NEUT % 82.2 % (16.0-70.0); PLATELET COUNT 244 TH/MM3 (150-450); RED BLOOD COUNT 3.24 MIL/MM3 (4.50-5.90); RED CELL DISTRIBUTION WIDTH 15.5 % (11.6-17.2); WHITE BLOOD COUNT 13.7 TH/MM3 (4.0-11.0)
[2016-05-27 07:23] LABS: BICARBONATE 25.5 MEQ/L (21.0-32.0); POTASSIUM 3.2 MEQ/L (3.5-5.1)
--- NOTE | 2016-05-27 08:37 | HHI.PR ---
Subjective Remarks Patient went for CT guided biopsy by IR. Was seen in [facility]. Sleepy. No pain, doesn't appear in distress. Denies n/v/d/c. Satting well on room air. No fever or chills. Objective Vitals Vital Signs Date Time Temp Pulse Resp B/P Pulse Ox O2 Delivery O2 Flow Rate FiO2 05/27/16 08:00 97.4 68 17 114/62 96 05/27/16 04:00 97.5 75 20 109/68 94 05/27/16 00:00 98.3 70 19 96 05/26/16 20:00 97.4 68 18 100/49 95 05/26/16 16:17 97.5 68 18 100/55 95 05/26/16 12:00 96.8 65 20 116/65 92 I/O 05/26/16 05/26/16 05/26/16 05/27/16 05/27/16 05/27/16 07:00 15:00 23:00 07:00 15:00 23:00 Intake Total 120 ml 360 ml Balance 120 ml 360 ml Intake Oral 120 ml 360 ml # Voids 2 1 2 # Bowel Movements 1 0 1 Result Diagram: 05/27/16 0539 05/27/16 0537 Imaging Last Impressions Abdomen/Pelvis CT 05/25/16 1635 Signed Impressions: Service Date/Time: Wednesday, May 25, 2016 18:29 - CONCLUSION: 1. Large probably necrotic mass within the left lower lobe measuring 6.6 cm x 4.8 cm. This is suspicious for bronchogenic carcinoma until proven otherwise. 2. Left upper quadrant mass measuring 4.3 x 4.6 cm consistent with possible metastatic disease to the left adrenal gland. 3. Extensive bulky retroperitoneal and retrocrural lymphadenopathy as well as portal lymphadenopathy. 4. At least three low density lesions within the right lobe of liver with the largest measuring 4.5 cm consistent with probable metastatic disease. 5. Mild hepatomegaly. 6. Left inguinal hernia containing a loop of proximal sigmoid colon but resulting in no colonic obstruction. 7. Enlarge prostate. 8. Infrarenal abdominal aortic aneurysm measuring 3.7 cm AP x 3.9 cm transverse dimension. 9. Diffuse urinary bladder wall thickening. 10. Small left pleural effusion and tiny right pleural effusion. Bandar Rahman MD Chest X-Ray 05/25/16 0000 Signed Impressions: Service Date/Time: Wednesday, May 25, 2016 17:11 - CONCLUSION: Mild diffuse mid to lower left lung consolidation versus atelectasis and small left pleural effusion. Chadwick Rodas MD Objective Remarks GENERAL: This is a pleasant cachectic chronically ill 80 yo male patient, in no apparent distress. SKIN: No rashes, ecchymoses or lesions. Cool, dry and scaly. HEAD: Atraumatic. Normocephalic. EYES: Pupils equal round and reactive. Extraocular motions intact. No drainage. ENT: Nose without bleeding, purulent drainage or septal hematoma. Airway patent. NECK: Trachea midline. No JVD or lymphadenopathy. Supple, nontender, no meningeal signs. CARDIOVASCULAR: Regular rate and rhythm without murmurs, gallops, or rubs. RESPIRATORY: Diminished Breath sounds. No wheezes, rales, or rhonchi. GASTROINTESTINAL: Abdomen soft, non-tender, nondistended. No hepato-splenomegaly , or palpable masses. No guarding. left inguinal hernia present. MUSCULOSKELETAL: Extremities without clubbing, cyanosis, or edema. No joint tenderness, effusion, or edema noted. No calf tenderness. NEUROLOGICAL: Awake and alert. Cranial nerves II through XII intact. Motor and sensory grossly within normal limits. Five out of 5 muscle strength in all muscle groups. Normal speech. A/P Problem List: (1) Leukocytosis ICD Code: D72.829 Status: Acute (2) Intractable nausea and vomiting ICD Code: R11.2 Status: Acute (3) Metastatic disease ICD Code: C79.9 Status: Acute (4) Diarrhea ICD Code: R19.7 Status: Acute (5) Decrease in appetite ICD Code: R63.0 Status: Acute Assessment and Plan 80 y/o male with no medical history and currently not on any medications. He does take OTC Tylenol for aches and pains. He presents to the ED with complaints of nausea, diarrhea and decreased appetite for the past two days. Leukocytosis Labs: wbc 13.4, neutrophils 79% CBC in AM, and trend Supportive IVF Continue Levaquin IV Flu pending Intractable nausea and vomiting Clear liquid diet and regular as tolerated Metastatic disease, possible abdomen and lung Images reviewed: Abd CT shows a Large probably necrotic mass within the left lower lobe measuring 6.6 cm x 4.8 cm. Left upper quadrant mass measuring 4.3 x 4.6 cm consistent with possible metastatic disease to the left adrenal gland. Extensive bulky retroperitoneal and retrocrural lymphadenopathy as well as portal lymphadenopathy. At least three low density lesions within the right lobe of liver with the largest measuring 4.5 cm consistent with probable metastatic disease. Infrarenal abdominal aortic aneurysm measuring 3.7 cm AP x 3.9 cm transverse dimension. Small left pleural effusion and tiny right pleural effusion. Consult Medical oncology for recommendations 05/27/16 s/p CT guided biopsy of adrenal mass. 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 Add Ensure. TSH is normal Discharge Planner consult Diarrhea, black stool Labs: HGB 11.1 C diff ordered Occult blood pending DVT: SCDs Discussed with the patient, nurse Problem Qualifiers (1) Leukocytosis: Qualified Code: D72.829 - Leukocytosis, unspecified type (2) Intractable nausea and vomiting: Qualified Code: R11.2 - Intractable vomiting with nausea, unspecified vomiting type Luann Aparicio MD May 27, 2016 08:37
[2016-05-27] MEDS: SODIUM CHLORIDE 0.9% FLUSH 10 ML FLUSH IV FLUSH SCH ×2 (08:38→21:59)
[2016-05-27] MEDS: SODIUM CHLOR 0.9% 1000 ML INJ 1,000 ML IV SCH ×3 (08:38→22:00)
[2016-05-27] MEDS: DRONABINOL 2.5 MG CAP PO SCH ×2 (11:41→16:00)
[2016-05-27] MEDS ORDERED: LIDOCAINE 1%/EPINEPHrine 1:100,000 SOLN 20 ML VIAL ONE (13:04)
[2016-05-27] MEDS ORDERED: fentaNYL CITRATE 250 MCG/5 ML AMP ONE (13:09)
[2016-05-27] MEDS ORDERED: MIDAZOLAM HCL 5 MG/5 ML VIAL ONE (13:09)
--- NOTE | 2016-05-27 14:51 | RADRPT ---
EXAM DATE/TIME: 05/27/2016 13:24 [facility] COMPARISON: No previous studies available for comparison. INDICATIONS : Left lung mass RADIATION DOSE: 8.14 CTDIvol (mGy) MEDICAL HISTORY : None SURGICAL HISTORY : None. ENCOUNTER: Initial ACUITY: 1 month PAIN SCALE: 0/10 LOCATION: chest TECHNIQUE: Volumetric scanning of the chest was performed. Using automated exposure control and adjustment of t he mA and/or kV according to patient size, radiation dose was kept as low as reasonably achievable to obtain optimal diagnostic quality images. FINDINGS: Recei 5 cm necrotic mass in the left lower lobe. Bilateral effusions are present. Calcified granuloma is present in the right middle lobe. Examination mediastinum demonstrates enlarged lymph nodes in the aortopulmonary window and left hilum characteristic of metastatic disease. Coronary artery calcifications are present. There is metastati c adenopathy at the aortic hiatus as well as surrounding the aorta at the level of the left renal hil us. A 5 cm left adrenal mass is present also characteristic of metastatic disease. There is a hypoden se 4 cm mass in segment 7 of the liver characteristic of metastatic disease. CONCLUSION: 1. 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 2. The patient is to undergo left adrenal biopsy Landon Manuel MD on May 27, 2016 at 14:43 Board Certified Radiologist. This report was verified electronically.
--- NOTE | 2016-05-27 15:46 | RADRPT ---
EXAM DATE/TIME: 05/27/2016 13:24 [facility] COMPARISON: No previous studies available for comparison. INDICATIONS : Left adrenal mass SEDATION TIME: 45 minutes BIOPSY SITE: Left adrenal MEDICATION(S): 1.) 2.5 mg midazolam (Versed) IV 2.) 125 mcg fentanyl (Sublimaze) IV DEVICE(S): 1.) 16 gauge Goldman blunt needle 2.) 18 gauge Temno core biopsy needle MEDICAL HISTORY : None. SURGICAL HISTORY : None. ENCOUNTER: Initial ACUITY: 1 day PAIN SCORE: 0/10 LOCATION: upper quadrant A total of three core specimen(s) were obtained and sent to the laboratory for pathologic evaluation. PROCEDURE: 1. CT guided adrenal, left biopsy. 2. Conscious sedation with continuous EKG and oximetry monitoring. 3. EKG and oximetry remained stable throughout the procedure. Prior to the procedure informed consent was obtained. Any appropriate prior imaging studies were rev iewed. Using automated exposure control and adjustment of the mA and/or kV according to patient size, radiat ion dose was kept as low as reasonably achievable to obtain optimal diagnostic quality images. The site was prepped in a sterile fashion. Full sterile technique was used, including cap, mask, gary rile gloves and gown and a large sterile sheet. Hand hygiene and 2% chlorhexidine and/or betadine/al cohol prep was utilized per protocol for cutaneous antisepsis. The skin and subcutaneous tissues wer e infiltrated with local anesthetic solution. With CT guidance the previously identified target was localized. Biopsy was performed using the presc ribed needle as above. Adequate hemostasis was obtained with compression at the puncture site. Follow-up CT scan reveals no hemorrhage. The patient tolerated the procedure well and there were no complications. The patient was returned to the Radiology Outpatient Unit in stable condition. CONCLUSION: Uncomplicated CT guided biopsy. Landon Manuel MD on May 27, 2016 at 15:44 Board Certified Radiologist. This report was verified electronically.
--- NOTE | 2016-05-27 17:53 | PD.ONC.PN ---
Subjective Subjective Remarks Pt has been afebrile. Asleep in bed on approach in no distress. He has recently returned from getting a biopsy of his adrenal gland. He has no complaints. Objective Data Date Time Temp Pulse Resp B/P Pulse Ox O2 Delivery O2 Flow Rate FiO2 05/27/16 16:00 95.8 53 20 134/60 95 05/27/16 15:30 58 18 117/66 97 05/27/16 15:00 57 18 123/67 97 05/27/16 14:45 97.3 64 18 107/67 92 05/27/16 12:00 97.4 66 18 116/64 95 05/27/16 08:00 97.4 68 17 114/62 96 05/27/16 04:00 97.5 75 20 109/68 94 05/27/16 00:00 98.3 70 19 96 05/26/16 20:00 97.4 68 18 100/49 95 Result Diagram: 05/27/16 0539 05/27/16 0537 Laboratory Results Laboratory Tests Test 05/27/16 05/27/16 05:37 05:39 Sodium Level 138 MEQ/L Potassium Level 3.2 MEQ/L Chloride Level 105 MEQ/L Carbon Dioxide Level 25.5 MEQ/L Anion Gap 8 MEQ/L Blood Urea Nitrogen 6 MG/DL Creatinine 0.68 MG/DL Estimat Glomerular Filtration 112 ML/MIN Rate Random Glucose 114 MG/DL Calcium Level 9.7 MG/DL Magnesium Level 2.0 MG/DL White Blood Count 13.7 TH/MM3 Red Blood Count 3.24 MIL/MM3 Hemoglobin 10.1 GM/DL Hematocrit 30.0 % Mean Corpuscular Volume 92.7 FL Mean Corpuscular Hemoglobin 31.1 PG Mean Corpuscular Hemoglobin 33.6 % Concent Red Cell Distribution Width 15.5 % Platelet Count 244 TH/MM3 Mean Platelet Volume 8.0 FL Neutrophils (%) (Auto) 82.2 % Lymphocytes (%) (Auto) 4.7 % Monocytes (%) (Auto) 12.8 % Eosinophils (%) (Auto) 0.1 % Basophils (%) (Auto) 0.2 % Neutrophils # (Auto) 11.3 TH/MM3 Lymphocytes # (Auto) 0.6 TH/MM3 Monocytes # (Auto) 1.8 TH/MM3 Eosinophils # (Auto) 0.0 TH/MM3 Basophils # (Auto) 0.0 TH/MM3 CBC Comment DIFF FINAL Differential Comment Imaging Studies Last 24 hours Impressions Adrenal Biopsy CT 05/27/16 0600 Signed Impressions: Service Date/Time: April 13:24 - CONCLUSION: Uncomplicated CT guided biopsy. Landon Manuel MD Chest CT 05/27/16 0000 Signed Impressions: Service Date/Time: April 13:24 - CONCLUSION: 1. 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 2. The patient is to undergo left adrenal biopsy Landon Manuel MD Administered Medications Medications (Trade) Dose Ordered Sig/Issa Route PRN Reason Start Time Stop Time Status Last Admin Dose Admin Sodium Chloride (NS 1000 ml Inj) 1,000 ml @ 100 mls/hr Q10H IV 05/25/16 20:00 05/27/16 11:41 Sodium Chloride (NS Flush) 2 ml BID IV FLUSH 05/25/16 21:00 05/27/16 08:38 Dronabinol 2.5 mg 2.5 mg BID@11,16 PO 05/26/16 11:00 05/27/16 11:41 Levofloxacin/ Dextrose (Levaquin 750 Mg Premix Inj) 150 ml @ 100 mls/hr Q24H IV 05/25/16 21:00 05/26/16 21:00 Acetaminophen/ Hydrocodone Bitart ([place] 5-325 Mg) 1 tab Q4H PRN PO PAIN SCALE 3 TO 5 05/26/16 12:45 05/26/16 13:42 Objective Remarks GENERAL: Disheveled appearing elderly male lying in bed in no distress. SKIN: Warm and dry. HEAD: Normocephalic. EYES: No injection or drainage. NECK: Supple, trachea midline. CARDIOVASCULAR: +S1/S2. RESPIRATORY: Rhonchi throughout. On 2L NC. GASTROINTESTINAL: Abdomen soft, non-tender, nondistended. EXTREMITIES: No cyanosis, or edema. NEUROLOGICAL: Alert. Normal speech. Moving all extremities to command. Assessment/Plan Problem List: (1) Metastatic disease Status: Acute Plan: -- Await path report of adrenal biopsy. 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 He drinks approximately 1 years per day. Prior to this admission he had lost approximately 15 pounds nausea vomiting and diarrhea for a few days which prompted him to come to the emergency department. (2) Leukocytosis Status: Acute Plan: -- On Levaquin. -- Monitor CBC Assessment 80-year-old male who is admitted for nausea, vomiting, and diarrhea and found to have areas of metastases on his CT of chest and abdomen. Plan 1. Await adrenal biopsy results 2. Face sheet faxed to [facility]. 3. Monitor labs, supportive care. Attending Statement The exam, history, and the medical decision-making described in the above note were completed with the assistance of the mid-level provider. I reviewed and agree with the findings presented. I attest that I had a [id number] encounter with the patient on the same day, and personally performed and documented my assessment and findings in the medical record. Discussed case with Dr. Manuel, IR, will biopsy adrenal lesion obtain anemia studies. Focus on nutrition/encourage oral intake Further recs based on path results can be d/c'd home whem medically stable and o/p f/u in oncology clinic d/w rn Problem Qualifiers (1) Leukocytosis: Qualified Code: D72.829 - Leukocytosis, unspecified type Minna Shahid May 27, 2016 17:53 Pramod De Luna MD May 27, 2016 23:24
[2016-05-27] MEDS: LEVOFLOXACIN 750 MG PREMIX INJ 150 ML IV SCH (21:58)
[2016-05-28] VITALS: BP 120/57; PULSE 50; RESP 16; TEMP 97; O2SAT 90
[2016-05-28 04:00] VITALS: BP 116/56; PULSE 54; RESP 16; TEMP 97.4; O2SAT 91
[2016-05-28 07:25] LABS: TRANSFERRIN IRON PROFILE 103 MG/DL (200-360)
[2016-05-28 08:00] VITALS: BP 110/60; PULSE 84; RESP 18; TEMP 97.8; O2SAT 92
[2016-05-28] MEDS: SODIUM CHLORIDE 0.9% FLUSH 10 ML FLUSH IV FLUSH SCH (09:00)
[2016-05-28] MEDS: SODIUM CHLOR 0.9% 1000 ML INJ 1,000 ML IV SCH (09:38)
--- NOTE | 2016-05-28 10:24 | PD.ONC.PN ---
Subjective Subjective Remarks Afebrile overnight. Patient eager to know when he can go home. He has no other complaints. Objective Data Date Time Temp Pulse Resp B/P Pulse Ox O2 Delivery O2 Flow Rate FiO2 05/28/16 08:00 97.8 84 18 110/60 92 05/28/16 04:00 97.4 54 16 116/56 91 05/28/16 00:00 97.0 50 16 120/57 90 05/27/16 18:45 95.3 51 20 128/55 94 05/27/16 16:00 95.8 53 20 134/60 95 05/27/16 15:30 58 18 117/66 97 05/27/16 15:00 57 18 123/67 97 05/27/16 14:45 97.3 64 18 107/67 92 05/27/16 12:00 97.4 66 18 116/64 95 05/28/16 05/28/16 05/28/16 07:00 15:00 23:00 Intake Total 240 ml Balance 240 ml Result Diagram: 05/27/16 0539 05/27/16 0537 Laboratory Results Laboratory Tests Test 05/28/16 05:45 Iron Level 21 MCG/DL Total Iron Binding Capacity 144 MCG/DL Percent Iron Saturation 14.6 % Transferrin 103 MG/DL Vitamin B12 Level 643 PG/ML Administered Medications Medications (Trade) Dose Ordered Sig/Issa Route PRN Reason Start Time Stop Time Status Last Admin Dose Admin Sodium Chloride (NS 1000 ml Inj) 1,000 ml @ 100 mls/hr Q10H IV 05/25/16 20:00 05/28/16 09:38 Sodium Chloride (NS Flush) 2 ml BID IV FLUSH 05/25/16 21:00 05/27/16 21:59 Dronabinol 2.5 mg 2.5 mg BID@11,16 PO 05/26/16 11:00 05/27/16 11:41 Levofloxacin/ Dextrose (Levaquin 750 Mg Premix Inj) 150 ml @ 100 mls/hr Q24H IV 05/25/16 21:00 05/27/16 21:58 Acetaminophen/ Hydrocodone Bitart ([place] 5-325 Mg) 1 tab Q4H PRN PO PAIN SCALE 3 TO 5 05/26/16 12:45 05/26/16 13:42 Objective Remarks GENERAL: Elderly male, lying supine in bed in nad. SKIN: Warm and dry. HEAD: Normocephalic. EYES: No injection or drainage. NECK: Supple, trachea midline. CARDIOVASCULAR: Regular rate and rhythm RESPIRATORY: Breath sounds equal bilaterally. No accessory muscle use. GASTROINTESTINAL: Abdomen soft, non-tender, nondistended. EXTREMITIES: No cyanosis NEUROLOGICAL: No obvious focal deficit. Awake, alert, and oriented x3. 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 He drinks approximately 1 years per day. Prior to this admission he had lost approximately 15 pounds nausea vomiting and diarrhea for a few days which prompted him to come to the emergency department. (2) Leukocytosis Status: Acute Plan: -- On Levaquin. -- Monitor CBC Assessment 80-year-old male who is admitted for nausea, vomiting, and diarrhea and found to have areas of metastases on his CT of chest and abdomen. Plan 1. await pathology from biopsy 2. once discharged, follow up with oncology. fs has been faxed to new patient referrals 3. clear for discharge from oncology perspective. Attending Statement The exam, history, and the medical decision-making described in the above note were completed with the assistance of the mid-level provider. I reviewed and agree with the findings presented. I attest that I had a [id number] encounter with the patient on the same day, and personally performed and documented my assessment and findings in the medical record. Problem Qualifiers (1) Leukocytosis: Qualified Code: D72.829 - Leukocytosis, unspecified type Tracy Pal May 28, 2016 10:24 Pramod De Luna MD Jun 02, 2016 22:27
[2016-05-28] MEDS ORDERED: IRON SUCROSE 100 MG/5 ML VIAL IV PUSH ONE (10:30)
[2016-05-28] MEDS ORDERED: IRON SUCROSE INJ 200 MG in SODIUM CHLORIDE 0.9% INJ 100 ML IV ONE (11:00)
[2016-05-28 12:00] VITALS: BP 119/64; PULSE 59; RESP 18; TEMP 95.7; O2SAT 93
--- NOTE | 2016-05-28 12:21 | HHI.DS ---
Discharge Summary Admission Date May 25, 2016 at 19:58 Discharge Date: May 28, 2016 Admitting Diagnosis intractable nausea, weakness, metastatic cancer (1) Leukocytosis ICD Code: D72.829 Diagnosis: Principal (2) Intractable nausea and vomiting ICD Code: R11.2 Diagnosis: Principal (3) Metastatic disease ICD Code: C79.9 Diagnosis: Secondary (4) Diarrhea ICD Code: R19.7 Diagnosis: Secondary (5) Decrease in appetite ICD Code: R63.0 Diagnosis: Secondary Procedures CT guide biopsy by IR 05/27 Brief History - From Admission 80 y/o male with no medical history and currently not on any medications. He does take OTC Tylenol for aches and pains. He presents to the ED with complaints of nausea, diarrhea and decreased appetite for the past two days. According to patients daughter who is at the bedside she states patient has been deteriorating for the last 2 months. He complains of of black liquid diarrhea many times for the last 2 days with associated nausea, but denies any vomiting. For the last week he has had a cold, with no sputum production, and complains of lightheadedness, and dizziness when he first stands up. He states he gets shaky when he gets up but goes away with walking. He states he also is having an intermittent dull, nagging pain in his right upper extremity, and lower back. Decreased in appetite has been for the last 2 months with a 10 lb weight loss. He states he does have burning with urination, and unable to empty his bladder completely, but this has been going on for 3 years and he has never seen a DR for it. He denies any fever, chills, SOB, or chest pain. CBC/BMP: 05/27/16 0539 05/27/16 0537 Significant Findings Laboratory Tests Test 05/25/16 05/25/16 05/25/16 05/26/16 16:30 16:50 18:49 05:12 White Blood Count 13.4 TH/MM3 (4.0-11.0) Red Blood Count 3.60 MIL/MM3 (4.50-5.90) Hemoglobin 11.1 GM/DL (13.0-17.0) Hematocrit 33.5 % (39.0-51.0) Neutrophils (%) (Auto) 79.4 % (16.0-70.0) Lymphocytes (%) (Auto) 8.9 % (9.0-44.0) Monocytes (%) (Auto) 10.5 % (0.0-8.0) Neutrophils # (Auto) 10.6 TH/MM3 (1.8-7.7) Monocytes # (Auto) 1.4 TH/MM3 (0-0.9) Activated Partial 33.4 SEC Thromboplast Time (24.3-30.1) Alkaline Phosphatase 190 U/L 160 U/L (45-117) (45-117) Total Protein 6.0 GM/DL 5.2 GM/DL (6.4-8.2) (6.4-8.2) Albumin 2.3 GM/DL 1.9 GM/DL (3.4-5.0) (3.4-5.0) Lipase 58 U/L (73-393) Lactic Acid Level 2.3 mmol/L (0.4-2.0) Urine Turbidity HAZY (CLEAR) Urine Occult Blood MOD (NEG) Urine RBC 14 /hpf (0-3) Urine Mucus FEW /lpf (OCC) Test 05/27/16 05/27/16 05/28/16 05:37 05:39 05:45 Potassium Level 3.2 MEQ/L (3.5-5.1) Blood Urea Nitrogen 6 MG/DL (7-18) Random Glucose 114 MG/DL (74-106) White Blood Count 13.7 TH/MM3 (4.0-11.0) Red Blood Count 3.24 MIL/MM3 (4.50-5.90) Hemoglobin 10.1 GM/DL (13.0-17.0) Hematocrit 30.0 % (39.0-51.0) Neutrophils (%) (Auto) 82.2 % (16.0-70.0) Lymphocytes (%) (Auto) 4.7 % (9.0-44.0) Monocytes (%) (Auto) 12.8 % (0.0-8.0) Neutrophils # (Auto) 11.3 TH/MM3 (1.8-7.7) Lymphocytes # (Auto) 0.6 TH/MM3 (1.0-4.8) Monocytes # (Auto) 1.8 TH/MM3 (0-0.9) Iron Level 21 MCG/DL (65-175) Total Iron Binding Capacity 144 MCG/DL (250-450) Percent Iron Saturation 14.6 % (20-50) Transferrin 103 MG/DL (200-360) Imaging Last Impressions Adrenal Biopsy CT 05/27/16 0600 Signed Impressions: Service Date/Time: April 13:24 - CONCLUSION: Uncomplicated CT guided biopsy. Landon Manuel MD Chest CT 05/27/16 0000 Signed Impressions: Service Date/Time: April 13:24 - CONCLUSION: 1. 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 2. The patient is to undergo left adrenal biopsy Landon Manuel MD Abdomen/Pelvis CT 05/25/16 1635 Signed Impressions: Service Date/Time: Wednesday, May 25, 2016 18:29 - CONCLUSION: 1. Large probably necrotic mass within the left lower lobe measuring 6.6 cm x 4.8 cm. This is suspicious for bronchogenic carcinoma until proven otherwise. 2. Left upper quadrant mass measuring 4.3 x 4.6 cm consistent with possible metastatic disease to the left adrenal gland. 3. Extensive bulky retroperitoneal and retrocrural lymphadenopathy as well as portal lymphadenopathy. 4. At least three low density lesions within the right lobe of liver with the largest measuring 4.5 cm consistent with probable metastatic disease. 5. Mild hepatomegaly. 6. Left inguinal hernia containing a loop of proximal sigmoid colon but resulting in no colonic obstruction. 7. Enlarge prostate. 8. Infrarenal abdominal aortic aneurysm measuring 3.7 cm AP x 3.9 cm transverse dimension. 9. Diffuse urinary bladder wall thickening. 10. Small left pleural effusion and tiny right pleural effusion. Bandar Rahman MD Chest X-Ray 05/25/16 0000 Signed Impressions: Service Date/Time: Wednesday, May 25, 2016 17:11 - CONCLUSION: Mild diffuse mid to lower left lung consolidation versus atelectasis and small left pleural effusion. Chadwick Rodas MD PE at Discharge GENERAL: This is a pleasant cachectic chronically ill 80 yo male patient, in no apparent distress. SKIN: No rashes, ecchymoses or lesions. Cool, dry and scaly. HEAD: Atraumatic. Normocephalic. EYES: Pupils equal round and reactive. Extraocular motions intact. No drainage. ENT: Nose without bleeding, purulent drainage or septal hematoma. Airway patent. NECK: Trachea midline. No JVD or lymphadenopathy. Supple, nontender, no meningeal signs. CARDIOVASCULAR: Regular rate and rhythm without murmurs, gallops, or rubs. RESPIRATORY: Diminished Breath sounds. No wheezes, rales, or rhonchi. GASTROINTESTINAL: Abdomen soft, non-tender, nondistended. No hepato-splenomegaly , or palpable masses. No guarding. left inguinal hernia present. MUSCULOSKELETAL: Extremities without clubbing, cyanosis, or edema. No joint tenderness, effusion, or edema noted. No calf tenderness. NEUROLOGICAL: Awake and alert. Cranial nerves II through XII intact. Motor and sensory grossly within normal limits. Five out of 5 muscle strength in all muscle groups. Normal speech. Pt update on day of discharge Feels much better. Says she is able to eat. No n/v/d/c. No fevers or chills. Hospital Course 80 y/o male with no medical history and currently not on any medications. He does take OTC Tylenol for aches and pains. He presents to the ED with complaints of nausea, diarrhea and decreased appetite for the past two days. Leukocytosis Labs: wbc 13.4, neutrophils 79% CBC in AM, and trend Supportive IVF Continue Levaquin IV Flu pending Intractable nausea and vomiting Clear liquid diet and regular as tolerated Metastatic disease, possible abdomen and lung Images reviewed: Abd CT shows a Large probably necrotic mass within the left lower lobe measuring 6.6 cm x 4.8 cm. Left upper quadrant mass measuring 4.3 x 4.6 cm consistent with possible metastatic disease to the left adrenal gland. Extensive bulky retroperitoneal and retrocrural lymphadenopathy as well as portal lymphadenopathy. At least three low density lesions within the right lobe of liver with the largest measuring 4.5 cm consistent with probable metastatic disease. Infrarenal abdominal aortic aneurysm measuring 3.7 cm AP x 3.9 cm transverse dimension. Small left pleural effusion and tiny right pleural effusion. Consult Medical oncology for recommendations 05/27/16 s/p CT guided biopsy of adrenal mass. IR consulted for biopsy . 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 Add Ensure. TSH is normal Bunch Maker consult Diarrhea, black stool Labs: HGB 11.1 C diff ordered Occult blood pending DVT: SCDs Discussed with the patient, nurse, family at bedside, case management. Patient improved. tolerates food, wants to go home . Plan to follow up as OP with [facility] . Patient needs bedside commode and also a walker. ordered, and discussed with the case management and family Patient to followup as OP with PCP and consultants. Discharged home in stable condition to followup as OP with PCP and consultants at [facility]. Family at bedside as well discussed plan. Pt Condition on Discharge: Stable Discharge Disposition: Discharge Home Discharge Time: > 30 minutes Discharge Instructions DIET: Follow Instructions for: As Tolerated, No Restrictions Additional Diet Instructions: Supplement meals with ensure vanilla flavour Activities you can perform: Regular-No Restrictions Follow up Referrals: Oncology - 3-5 Days PCP Follow-up - 2-3 Days New Medications: 3-in-1 Bedside Toilet (3-in-1 Bedside Toilet) 1 Mis Mis 1 EA .ROUTE DIRECTED #1 EA Hydrocodone-Acetaminophen ([place]) 5-325 mg Tab 1 TAB PO Q6H PRN PAIN #20 Ref 0 TAB Lactobacillus Acidophilus (Lactinex) 1 Chew 1 TAB CHEW DAILY Nutritional Supplement #10 Ref 0 TAB Walker Rolling/GetGo (Walker Rolling/GetGo) 1 Mis Mis 1 EA .ROUTE DIRECTED #1 EA Dronabinol (Marinol) 2.5 Mg Cap 2.5 MG PO BID@11,16 appetite enhancer #20 CAP Sennosides (Senna Lax) 8.6 Mg Tab 17.2 MG PO Q12H PRN CONSTIPATION #30 TAB Luann Aparicio MD May 28, 2016 12:21
[2016-05-28] MEDS ORDERED: GETGO ROLLING W1 MI1 (13:06)
[2016-05-28] MEDS ORDERED: MISC-163 (13:06)
[2016-05-28] MEDS: DRONABINOL 2.5 MG CAP PO SCH (14:21)
== END 2016-05-28 15:49 | disposition home or self-care (01) | DRG 180 ==
LOC: NEDAMB 15:26 → NEDA 19:58 → N06B 22:37
PROVIDERS: ADMIT Hospitalist; ATTEND Hospitalist
PROC: 0GB23ZX Excision of Left Adrenal Gland, Percutaneous Approach, Diagnostic (ICD-10-PCS; principal; 2016-05-27)
DX: C78.02 Secondary malignant neoplasm of left lung (principal); E43 Unspecified severe protein-calorie malnutrition; C78.7 Secondary malignant neoplasm of liver and intrahepatic bile duct; C77.2 Secondary and unspecified malignant neoplasm of intra-abdominal lymph nodes; C79.72 Secondary malignant neoplasm of left adrenal gland; R64 Cachexia; J90 Pleural effusion, not elsewhere classified; C80.1 Malignant (primary) neoplasm, unspecified; Z68.1 Body mass index [BMI] 19.9 or less, adult; R63.0 Anorexia; R11.2 Nausea with vomiting, unspecified; F17.210 Nicotine dependence, cigarettes, uncomplicated; R19.7 Diarrhea, unspecified; D72.829 Elevated white blood cell count, unspecified; I71.4 Abdominal aortic aneurysm, without rupture; Z23 Encounter for immunization
CPT/HCPCS: 60699; 71010; 71250; 74177; 77012; 80048; 80053; 81001; 82607; 82747; 83540; 83550; 83605; 83690; 83735; 84443; 84466; 85025; 85610; 85730; 88307; 88341; 88342; 90471; 90472; 90686; 90732; 93005; 96360; 96361; 99152; 99153; G0008; G0009; J1756; J1956; J2250; J3010; J7030; Q0167; Q2038; Q9967